=== PATIENT | female | born 1985 | race Native Hawaiian/Other Pacific Islander ===

== ENCOUNTER 2017-05-01 08:43 | Emergency (ER) | payer OTHER ==
[~2017-05-01] VITALS: Ht 157.5 cm; Wt 78.9 kg
--- NOTE | ~2017-05-01 | EKG ---
[address] [address] ELECTROCARDIOGRAM REPORT Name: MIHIR ALONSO Room #: [facility] Aisha#: [id number] Admission: 05/01/17 Attend Phys: Discharge: 05/01/17 Date of : 83 Report #: [id number] THIS REPORT FOR: //name// [facility] ED Test Date: 2017-05-01 Test Time: 08:53:29 Pat Name: MIHIR ALONSO Department: Room: Gender: F [employer] Past[employer]: GINGER : 1985 Requested By: Ailyn Humphries Order Number: [id number] MD: Jerrell Carnes Measurements Intervals Ringle Rate: 71 P: 2 NH: 136 QRS: -2 QRSD: 92 T: 24 QT: 385 QTc: 419 Interpretive Statements Sinus rhythm No previous ECG available for comparison Electronically Signed On 05-01-2017 11:40:54 [employer] by Jerrell Carnes [email or web address] <ELECTRONICALLY SIGNED> By: Jerrell Carnes MD 05/01/17 [id number] MD ESTHER Reed
[2017-05-01 09:27] LABS: URINE BILIRUBIN NEGATIVE (Negative); URINE BLOOD TRACE (Negative); URINE CLARITY CLEAR; URINE COLOR YELLOW; URINE GLUCOSE-RANDOM* NEGATIVE (Negative); URINE KETONES NEGATIVE (Negative); URINE LEUKOCYTES TRACE (Negative); URINE NITRITE NEGATIVE (Negative); URINE PROTEIN (DIPSTICK) NEGATIVE (Negative); URINE SPECIFIC GRAVITY <= 1.005 (1.005-1.035); URINE UROBILINOGEN 0.2 E.U./dl (0.2-1.0)
[2017-05-01 10:18] LABS: ABSOLUTE NEUTROPHILS 2.1 thou/uL (1.4-8.2); BASOPHILS 0.5 % (0.0-2.0); EOSINOPHILS 1.3 % (0.0-3.0); HEMATOCRIT 39.2 % (37.0-47.0); LYMPHOCYTES 47.8 % (24.0-44.0); MCH 29.7 pg (26.0-34.0); MCHC 33.1 g/dL (28.0-37.0); MCV 89.9 fL (80.0-100.0); MONOCYTES 4.8 % (1.0-8.0); PLATELET COUNT 151 thou/uL (150-400); POLYS 45.6 % (36.0-66.0); RBC 4.36 mil/uL (4.20-5.00); RDW 12.8 % (10.5-14.5); WBC 4.5 thou/uL (4.0-11.0)
[2017-05-01 10:28] LABS: ANION GAP 9 mmol/L (7-16); BUN 9 mg/dL (7-18); CALCIUM 9.1 mg/dL (8.5-10.1); CHLORIDE 105 mmol/L (98-107); CO2 26 mmol/L (21-32); CREATININE 0.8 mg/dL (0.6-1.0); GLUCOSE 86 mg/dL (74-106); POTASSIUM 3.6 mmol/L (3.5-5.1); SODIUM 140 mmol/L (136-145)
[2017-05-01 10:36] LABS: ALBUMIN 3.9 g/dL (3.4-5.0); SGOT 16 U/L (15-37); SGPT 24 U/L (30-65); TOTAL BILIRUBIN 0.5 mg/dL (<0.1-1.0); TOTAL PROTEIN 7.7 g/dL (6.4-8.2); TROPONIN-I < 0.04 ng/mL (<0.06)
== END 2017-05-01 10:54 | disposition home or self-care (01) ==
LOC: ER 08:43
PROVIDERS: Physician Assistant
DX: R07.9 Chest pain, unspecified (principal)